=== PATIENT | female | born 1985 | race Caucasian/White ===

== ENCOUNTER 2017-06-09 11:28 | Emergency (ER) | payer MEDICAID ==
[~2017-06-09] VITALS: Ht 167.6 cm; Wt 48.0 kg
[2017-06-09 11:43] VITALS: BP 105/56
== END 2017-06-09 13:45 | disposition left against medical advice (07) ==
LOC: ER 13:12
DX: J06.9 Acute upper respiratory infection, unspecified (principal)
CPT/HCPCS: 99281